=== PATIENT | male | born 1995 | race Caucasian/White ===

== ENCOUNTER → 2023-06-08 | Emergency (ER) | payer OTHER ==
[~2023-06-08] MED LIST: IBUPROFEN 400 MG TAB ONE
--- NOTE | 2023-06-08 13:19 | ER ---
Nurse's Notes [facility] Name: Zan Tadeo Age: 28 yrs Sex: Male : 1995 Arrival Date: 06/08/2023 Time: 11:54 Bed 13 Private MD: Diagnosis: Costochondritis Presentation: 06/07 12:12 Chief complaint: Patient states: "Bump on chest", right sided chest pain with any [facility] physical activity, states he has been diagnosed with costochondritis in the past. Does not have pain at this time, no pain when at rest. Coronavirus screen: Vaccine status: Patient reports receiving the 2nd dose of the covid vaccine. Ebola Screen: Patient denies travel to an Ebola-affected area in the 21 days before illness onset. Initial Sepsis Screen: Does the patient meet any 2 criteria? No. Patient's initial sepsis screen is negative. Does the patient have a suspected source of infection? No. Patient's initial sepsis screen is negative. Risk Assessment: Do you want to hurt yourself or someone else? Patient reports no desire to harm self or others. Onset of symptoms. 12:12 Method Of Arrival: Ambulatory [facility] 12:12 Acuity: KATE 3 nj1 Historical: - Allergies: 12:27 No Known Allergies; nj1 - PMHx: 12:27 None; nj1 - Immunization history:: Client reports receiving the 2nd dose of the Covid vaccine. - Social history:: Smoking status: Patient denies any tobacco usage or history of. Screenin:48 [facility] ED Fall Risk Assessment (Adult) History of falling in the last 3 months, db including since admission No falls in past 3 months (0 pts) Confusion or Disorientation No (0 pts) Intoxicated or Sedated No (0 pts) Impaired Gait No (0 pts) Mobility Assist Device Used No (0 pt) Altered Elimination No (0 pt) Score/Fall Risk Level 0 - 2 = Low Risk Oriented to surroundings, Maintained a safe environment. Abuse screen: Denies threats or abuse. Denies injuries from another. Nutritional screening: No deficits noted. Tuberculosis screening: No symptoms or risk factors identified. Assessment: 12:15 Reassessment: Patient appears in no apparent distress at this time. Patient and/or db family updated on plan of care and expected duration. Pain level reassessed. Patient is alert, oriented x 3, equal unlabored respirations, skin warm/dry/pink. General: Appears in no apparent distress. comfortable, Behavior is calm, cooperative. Neuro: Level of Consciousness is awake, alert, obeys commands, Oriented to person, place, time, situation. 12:30 Reassessment: Patient appears in no apparent distress at this time. Patient and/or db family updated on plan of care and expected duration. Pain level reassessed. Patient is alert, oriented x 3, equal unlabored respirations, skin warm/dry/pink. 13:35 Reassessment: Patient appears in no apparent distress at this time. Patient and/or db family updated on plan of care and expected duration. Pain level reassessed. Patient is alert, oriented x 3, equal unlabored respirations, skin warm/dry/pink. General: Appears in no apparent distress. comfortable. 13:35 Pain: Denies pain. db Vital Signs: 12:12 BP 154 / 79; Pulse 68; Resp 18; Temp 98(O); Pulse Ox 98% on R/A; Weight 97.52 kg; [facility] Height 5 ft. 11 in. ; 12:30 BP 135 / 78; Pulse 65; Resp 18; Pulse Ox 97% on R/A; db 13:00 BP 151 / 79; Pulse 69; Resp 16; Pulse Ox 99% on R/A; db 12:12 Body Mass Index 29.99 (97.52 kg, 180.34 cm) [facility] ED Course: 11:55 Patient arrived in ED. rg4 12:05 Michael Cabrera MD is Attending Physician. amanda 12:14 Anamika Pak, MANDIE is Primary Nurse. db 12:27 Triage completed. [facility] 12:27 Arm band placed on. [facility] 12:48 Patient has correct armband on for positive identification. Bed in low position. Call db light in reach. Side rails up X 1. Pulse ox on. NIBP on. 13:00 Provided Education on: DSICHARGE. db 13:00 No provider procedures requiring assistance completed. Patient did not have IV access db during this emergency room visit. 13:13 Melvin Gibson DO is Referral Physician. amanda 13:20 Sourav David MD is Referral Physician. amanda 13:37 Chest Pa And Lat (2 Views) XRAY In Process Unspecified. EDMS Administered Medications: 13:28 Drug: Ibuprofen PO 800 mg PO once Route: PO; db 13:35 Follow up: Response: No adverse reaction db Medication: 12:48 VIS not applicable for this client. db Outcome: 13:00 Discharged to home ambulatory, db 13:00 Condition: stable 13:00 Discharge instructions given to patient, Instructed on discharge instructions, follow up and referral plans. Prescriptions given X 2, 13:18 Discharge ordered by MD. patel 13:37 Patient left the ED. db Signatures: Dispatcher [employer] Michael Cabello MD MD cha Garcia, Rubi rg4 Anamika Pak, RN RN db Nuris Aguilera RN RN nj1
--- NOTE | 2023-06-08 13:19 | EDPHYS ---
Physician Documentation [facility] Name: Zan Tadeo Age: 28 yrs Sex: Male : 1995 Arrival Date: 06/08/2023 Time: 11:54 Bed 13 Private MD: ED Physician Michael Cabrera HPI: 06/07 13:08 This 28 yrs old Male presents to ER via Ambulatory with complaints of Bump on amanda Chest, Shoulder Pain. Historical: - Allergies: 12:27 No Known Allergies; nj1 - PMHx: 12:27 None; nj1 - Immunization history:: Client reports receiving the 2nd dose of the Covid vaccine. - Social history:: Smoking status: Patient denies any tobacco usage or history of. ROS: 13:08 Constitutional: Negative for fever, chills, and weight loss, Eyes: Negative for injury, amanda pain, redness, and discharge, ENT: Negative for injury, pain, and discharge, Neck: Negative for injury, pain, and swelling, Cardiovascular: Negative for chest pain, palpitations, and edema, Respiratory: Negative for shortness of breath, cough, wheezing, and pleuritic chest pain, Abdomen/GI: Negative for abdominal pain, nausea, vomiting, diarrhea, and constipation, Back: Negative for injury and pain, : Negative for injury, bleeding, discharge, and swelling, MS/Extremity: Negative for injury and deformity, Skin: Negative for injury, rash, and discoloration, Neuro: Negative for headache, weakness, numbness, tingling, and seizure, Psych: Negative for depression, anxiety, suicide ideation, homicidal ideation, and hallucinations, Allergy/Immunology: Negative for hives, rash, and allergies, Endocrine: Negative for neck swelling, polydipsia, polyuria, polyphagia, and marked weight changes, Hematologic/Lymphatic: Negative for swollen nodes, abnormal bleeding, and unusual bruising, Exam: 13:08 Constitutional: This is a well developed, well nourished patient who is awake, alert, amanda and in no acute distress. Head/Face: Normocephalic, atraumatic. Eyes: Pupils equal round and reactive to light, extra-ocular motions intact. Lids and lashes normal. Conjunctiva and sclera are non-icteric and not injected. Cornea within normal limits. Periorbital areas with no swelling, redness, or edema. ENT: Nares patent. No nasal discharge, no septal abnormalities noted. Tympanic membranes are normal and external auditory canals are clear. Oropharynx with no redness, swelling, or masses, exudates, or evidence of obstruction, uvula midline. Mucous membranes moist. Neck: Trachea midline, no thyromegaly or masses palpated, and no cervical lymphadenopathy. Supple, full range of motion without nuchal rigidity, or vertebral point tenderness. No Meningismus. Cardiovascular: Regular rate and rhythm with a normal S1 and S2. No gallops, murmurs, or rubs. Normal PMI, no JVD. No pulse deficits. Respiratory: Lungs have equal breath sounds bilaterally, clear to auscultation and percussion. No rales, rhonchi or wheezes noted. No increased work of breathing, no retractions or nasal flaring. Abdomen/GI: Soft, non-tender, with normal bowel sounds. No distension or tympany. No guarding or rebound. No evidence of tenderness throughout. Back: No spinal tenderness. No costovertebral tenderness. Full range of motion. Skin: Warm, dry with normal turgor. Normal color with no rashes, no lesions, and no evidence of cellulitis. MS/ Extremity: Pulses equal, no cyanosis. Neurovascular intact. Full, normal range of motion. Neuro: Awake and alert, GCS 15, oriented to person, place, time, and situation. Cranial nerves II-XII grossly intact. Motor strength 5/5 in all extremities. Sensory grossly intact. Cerebellar exam normal. Normal gait. Psych: Awake, alert, with orientation to person, place and time. Behavior, mood, and affect are within normal limits. 13:08 Chest/axilla: Inspection: normal, no acute changes, Palpation: tenderness, that is mild, of the anterior aspect of right upper chest, Axilla: are normal, 13:08 Musculoskeletal/extremity: DVT Exam: No signs of deep vein thrombosis. no pain, no swelling, no tenderness, negative Homans' sign noted on exam, no appreciated bluish discoloration, no erythema, no increased warmth, Vital Signs: 12:12 BP 154 / 79; Pulse 68; Resp 18; Temp 98(O); Pulse Ox 98% on R/A; Weight 97.52 kg; nj1 Height 5 ft. 11 in. ; 12:30 BP 135 / 78; Pulse 65; Resp 18; Pulse Ox 97% on R/A; db 13:00 BP 151 / 79; Pulse 69; Resp 16; Pulse Ox 99% on R/A; db 12:12 Body Mass Index 29.99 (97.52 kg, 180.34 cm) nj1 MDM: 12:05 Patient medically screened. amanda 13:10 Differential diagnosis: Blunt Chest Trauma Chest Wall Contusion Chest Wall Injury Rib amanda Fracture. Data reviewed: vital signs, nurses notes, radiologic studies, plain films. Consideration of Admission/Observation Escalation of care including admission/observation considered. I considered the following discharge prescriptions or medication management in the emergency department Medications were administered in the Emergency Department. See MAR. Test considered but Not performed: Labs: no labs , no ekg. Historians other than the Patient: pt well informed. Care significantly affected by the following chronic conditions: none , heavy lifting. Counseling: I had a detailed discussion with the patient and/or guardian regarding the historical points, exam findings, and any diagnostic results supporting the discharge/admit diagnosis, radiology results, the need for outpatient follow up, for definitive care, a family practitioner. 06/07 13:08 Order name: Chest Pa And Lat (2 Views) XRAY amanda Administered Medications: 13:28 Drug: Ibuprofen PO 800 mg PO once Route: PO; db 13:35 Follow up: Response: No adverse reaction db Disposition Summary: 06/08/23 13:18 Discharge Ordered Notes: Location: Home amanda Problem: new amanda Symptoms: have improved amanda Condition: Stable amanda Diagnosis - Costochondritis amanda Followup: amanda - With: Private Physician - When: 2 - 3 days - Reason: Recheck today's complaints, Continuance of care, Re-evaluation by your physician Followup: amanda - With: Melvin Gibson DO - When: 2 - 3 days - Reason: Recheck today's complaints, Continuance of care, Re-evaluation by your physician Followup: amanda - With: Sourav David MD - When: 2 - 3 days - Reason: Recheck today's complaints, Re-evaluation by your physician Discharge Instructions: - Discharge Summary Sheet amanda - Chest Wall Pain amanda - Chest Contusion, Adult amanda - Costochondritis amanda - Costochondritis, [id number] amanda - Chest Wall Pain, [id number] amanda - Chest Contusion, Adult, [id number] [facility] Forms: - Medication Reconciliation Form amanda - Thank You Letter amanda - Antibiotic Education amanda - Prescription Opioid Use amanda - Patient Portal Instructions amanda - Leadership Thank You Letter amanda Prescriptions: - Diclofenac Sodium 75 mg Oral tablet, delayed release (enteric coated) - take 1 tablet ORAL route 2 times per day; 20 tablet; Refills: 0, Product [facility] Selection Permitted - Medrol (Juan Manuel) 4 mg Oral Tablets, Dose Pack - take 1 tablet ORAL route as directed - follow package instructions; 1 packet; [facility] Refills: 0, Product Selection Permitted Signatures: Dispatcher [employer] Michael Cabello MD MD cha Benton, Danielle, RN RN db Nuris Aguilera RN RN nj1
--- NOTE | 2023-06-08 13:40 | RAD REPORT ---
EXAM DESCRIPTION: RAD - Chest Pa And Lat (2 Views) - 06/08/2023 1:35 pm CLINICAL HISTORY: RIB PAIN - RIGHT COMPARISON: No comparisons FINDINGS: Lines: None. Lungs: No evidence of edema or pneumonia. Pleural: No significant pleural effusions or pneumothorax. Cardiac: The heart size is within normal limits. Mediastinum: Within normal limits. Bones: No acute fractures. Other: None IMPRESSION: No acute cardiopulmonary disease.
[2023-06-08 14:06] VITALS: BP 151/79; TEMP 98; O2SAT 99
== END ==
LOC: ER 11:54
DX: M94.0 Chondrocostal junction syndrome [Tietze] (principal)
CPT/HCPCS: 71046; 99284